=== PATIENT | male | born 1985 | race Caucasian/White ===

== ENCOUNTER 2018-08-07 07:04 | Outpatient (CLI) | payer OTHER, SELFPAY ==
[2018-08-07 08:14] LABS: Hemoglobin A1C 5.6 % (4.5-6.2)
[2018-08-07 09:05] LABS: ALT 83 U/L (12-78); AST 40 U/L (15-37); Albumin 3.9 g/dL (3.4-5.0); Alkaline Phosphatase 75 U/L (46-116); Anion Gap 10.6 mmol/L (3-11); BUN 12 mg/dL (7-18); Bilirubin, Total 1.2 mg/dL (0.2-1.0); CO2 25.4 mmol/L (21.0-32.0); CREATININE 0.83 mg/dL (0.70-1.30); Calcium 9.1 mg/dL (8.5-10.1); Chloride 103 mmol/L (98-107); Cholesterol 174 mg/dL (50-200); Glucose 118 mg/dL (70-100); HDL Cholesterol 39 mg/dL (40-60); LDL CHOLESTEROL 112 mg/dL (<100); Potassium 4.1 mmol/L (3.5-5.1); Sodium 139 mmol/L (136-145); Total Protein 6.9 g/dL (6.4-8.2); Triglyceride 131 mg/dL (30-150)
== END 2018-08-07 07:24 ==
PROVIDERS: PCP Family Medicine; Visit Provider Family Medicine
DX: R73.03 Prediabetes (principal); K76.0 Fatty (change of) liver, not elsewhere classified
CPT/HCPCS: 36415; 80053; 80061; 83721; 83036

== ENCOUNTER 2018-11-13 06:56 | Outpatient (CLI) | payer OTHER, SELFPAY ==
[2018-11-13 08:13] LABS: HCT 48.2 % (40.0-50.0); HGB 17.4 g/dL (13.5-17.5); Mean Corp. HGB Concentration 36.1 g/dL (32.0-36.0); Mean Corpuscular Hemoglobin 30.2 pg (27.0-33.0); Mean Corpuscular Volume 83.7 fL (80-95); Mean Platelet Volume 12.5 fL (8.0-11.0); Platelet Count 158 x1000/uL (130-400); RBC 5.76 m/cumm (4.50-6.00); RBC Distribution Width 12.6 % (11.8-14.1); White Blood Cell Count 5.19 k/cumm (4.4-10.8)
[2018-11-13 09:03] LABS: Iron 89 ug/dL (50-175); Total Iron Binding Capacity 238 ug/dL (250-450); Transferrin Sat 37 % (20-55)
[2018-11-13 09:17] LABS: ALT 120 U/L (12-78); AST 44 U/L (15-37); Albumin 4.1 g/dL (3.4-5.0); Alkaline Phosphatase 68 U/L (46-116); Anion Gap 9.5 mmol/L (3-11); BUN 17 mg/dL (7-18); Bilirubin, Total 0.7 mg/dL (0.2-1.0); CO2 25.5 mmol/L (21.0-32.0); CREATININE 0.89 mg/dL (0.70-1.30); Calcium 9.2 mg/dL (8.5-10.1); Chloride 105 mmol/L (98-107); Ferritin 538 ng/mL (8-388); Glucose 118 mg/dL (70-100); Sodium 140 mmol/L (136-145); Total Protein 7.2 g/dL (6.4-8.2)
[2018-11-14 09:42] LABS: Transferrin 181 mg/dL (201-352)
== END 2018-11-13 07:16 ==
PROVIDERS: PCP Family Medicine; Visit Provider Family Medicine
DX: R73.03 Prediabetes (principal); R79.89 Other specified abnormal findings of blood chemistry; K76.0 Fatty (change of) liver, not elsewhere classified
CPT/HCPCS: 36415; 80053; 85027; 82728; 83540; 83550; 84466

== ENCOUNTER 2020-06-12 08:25 | Outpatient (CLI) | payer OTHER, SELFPAY ==
[2020-06-15 08:17] LABS: SARS-CoV-2 RNA Undetected (Undetected); SARS-CoV-2 Specimen Source Nasopharynx
== END 2020-06-12 08:45 ==
PROVIDERS: PCP Family Medicine; Visit Provider Nurse Practitioner Family
DX: R05 Cough (principal)
CPT/HCPCS: U0003

== ENCOUNTER 2020-07-23 08:40 | Emergency (ER) | payer OTHER, SELFPAY ==
[2020-07-23 08:43] VITALS: BP 163/91; PULSE 85; RESP 16; TEMP 36.6; O2SAT 94
--- NOTE | 2020-07-23 08:44 | ED.GENADUL_ITS ---
Discharge Plan Disposition Patient Disposition: HOME Condition: Improving Discharge Details Clinical Impression: Laceration of hand, left Primary Care Provider: Alondra Vargas ED Provider: Marc Rivero Home Meds and New Rx's Prescriptions: Continued omeprazole 20 mg capsule,delayed release(DR/EC) 20 mg PO DAILY Qty: 90 RF: 3 Aspirin/Acetaminophen/Caffeine [Excedrin Extra Strength Caplet] 1 EACH tablet 2 ea PO PRN PRNRF: 0 No Action valacyclovir 1 gram tablet 2,000 mg PO Q12H PRN (Reason: herpes labialis) Qty: 20 RF: 3 Discharge Instructions Instructions: Laceration (ED) Additional Instructions: He had 4 sutures placed. Sutures removed in 8 to 9 days time. It is included free to return to ER for suture removal. May use splint if needed for protection while at work. Leave current Band-Aid in place for 36 hours, then gently wash with soap and water, pat dry and replace Band-Aid. Return if develop cold/blue/numbness of the fingertips, redness, foul-smelling discharge or a fever. May apply ice to reduce discomfort. Tylenol if needed. Medical Decision Making 34-year-old healthy male whose last tetanus shot was in 2019. He presents for laceration to the distal ulnar aspect of the fifth digit. He has normal two- point discrimination and normal vascular and motor exam. Wound liberally irrigated, anesthetized, examined in a bloodless field without evidence of deep tissue involvement nor a foreign body. Repaired with 4 interrupted nylon sutures. Patient given a splint for protection of the digit. He will leave the dressing on for 36 hours, then begin daily dressing changes. Return or see PMD for suture removal in 7 to 10 days time. HPI General Mode of arrival: ambulatory . Date/Time Provider Initiated Documentation: 07/23/20 08:41 . Limitations to Documentation: no limitations . Information obtained by: patient . History of Present Illness 34 year old M presents to the emergency department with the chief complaint of Laceration, described as mild, Quality is described as dull, and is localized to the left and upper extremity. Patient started experiencing this minute(s) and it has been constant. No relieving factors improve symptom(s), No exacerbating factors reported . Patient notes no other symptoms.. Patient did receive the following treatments prior to arrival, other (Bandage) Related Data Home Medications Medication Instructions Recorded Confirmed Aspirin/Acetaminophen/Caffeine 2 ea PO PRN PRN 09/22/17 07/23/20 [Excedrin Extra Strength Caplet] valacyclovir 1 gram tablet 2,000 mg PO Q12H PRN #20 tab 04/17/19 07/23/20 omeprazole 20 mg capsule,delayed 20 mg PO DAILY #90 tab-cap 04/10/20 07/23/20 release Previous Rx's Medication Instructions Recorded valacyclovir 1 gram tablet 2,000 mg PO Q12H PRN #20 tab 04/17/19 omeprazole 20 mg capsule,delayed 20 mg PO DAILY #90 tab-cap 04/10/20 release Allergies Allergy/AdvReac Type Severity Reaction Status Date / Time No Known Allergies Allergy Unverified 07/23/20 08:48 Review of Systems Narrative: Otherwise well. Last tetanus 2018 [facility] Family History Mother Diabetes Essential hypertension Father No problems noted. Brother No problems noted. Grandfather No problems noted. Grandfather No problems noted. Grandmother Diabetes Heart disease Stroke Grandmother No problems noted. Social History Smoking/Tobacco Use Status: Current every day Tobacco Type: smokeless tobacco Drug use: Never Substance use type: does not use Do you feel safe in your relationship?: Yes Exam Narrative Exam Narrative: GEN: awake, alert, oriented 3. Pleasant, well groomed, interactive. HEAD: Normocephalic, atraumatic CHEST/RESP: No respiratory distress Upper extremity: 2+ radial pulse bilaterally. Sensation intact throughout. The left hand has a 1.5 cm laceration on the distal ulnar aspect of the fifth digit. The volar pad is unaffected. Two-point discrimination is intact at 1 cm. Normal capillary refill. Normal range of motion. Neuro: Grossly normal neurologic exam, conversant, interactive. Psych: Speech fluent, thoughts congruent, affect normal Procedures Laceration Laceration 1: Site: hand Side (If applicable): left Size (cm): 1.5 Description: irregular Local Anesthetic: Lidocaine 1% Amount of anesthesia used (mL): 0.5 Pre-repair: wound explored and irrigated extensively Skin layer closed with: nylon Size (cm): 4-0 Number of sutures: 4 Technique: simple, interrupted
== END 2020-07-23 09:16 | disposition home or self-care (01) ==
PROVIDERS: Emergency Provider Emergency Medicine; PCP Family Medicine
DX: S61.217A Laceration without foreign body of left little finger without damage to nail, initial encounter (principal); W26.8XXA Contact with other sharp object(s), not elsewhere classified, initial encounter; Y99.0 Civilian activity done for income or pay
CPT/HCPCS: 12001

== ENCOUNTER 2021-01-13 08:15 | Outpatient (CLI) | payer OTHER, SELFPAY ==
--- NOTE | 2021-01-13 08:00 | DI.RAD_ITS ---
EXAM: XR SHOULDER RT COMPLETE 2+V CLINICAL HISTORY: right shoulder pain. TECHNIQUE: 2D digital imaging was performed. COMPARISON: No exams were available for comparison FINDINGS: No evidence of fracture or dislocation. No abnormal soft tissue calcifications. Benign bone island is noted in the osseous glenoid. Subacromial space is not diminished. No ominous osseous lesions. IMPRESSION: DATA REPOSITORY: RADIATION DOSE DELIVERED:
== END 2021-01-13 08:16 | disposition home or self-care (01) ==
LOC: DIORS 08:15
PROVIDERS: PCP Family Medicine; Referring Provider Family Medicine; Visit Provider Student in an Organized Health Care Education/Training Program
DX: M25.511 Pain in right shoulder (principal); S46.911A Strain of unspecified muscle, fascia and tendon at shoulder and upper arm level, right arm, initial encounter
CPT/HCPCS: 73030

== ENCOUNTER 2021-03-30 01:44 | Outpatient (CLI) | payer OTHER, SELFPAY ==
[2021-03-30 11:48] LABS: Source Nasal/Nares
[2021-03-30 17:47] LABS: COVID-19 PCR Negative (Negative)
== END 2021-03-30 01:45 | disposition home or self-care (01) ==
PROVIDERS: PCP Family Medicine; Visit Provider Student in an Organized Health Care Education/Training Program
DX: Z20.822 Contact with and (suspected) exposure to COVID-19 (principal); Z01.818 Encounter for other preprocedural examination
CPT/HCPCS: 87635

== ENCOUNTER 2021-04-01 06:06 | Day surgery (SDC) | payer OTHER, SELFPAY ==
[2021-04-01] VITALS (9 sets, daily range): BP systolic 111–135; BP diastolic 52–87; PULSE 62–74; RESP 16–26; TEMP 36–36.6; O2SAT 92–98; BMI 38.7
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
[2021-04-01] MEDS: Lactated Ringers 1,000 ML 100 ML IV (06:42)
--- NOTE | 2021-04-01 07:08 | PDOC.DSDIS_ITS ---
Discharge Plan Disposition Patient Disposition: HOME Condition: Stable Discharge Details Reason For Visit: Right shoulder surgery Attending Provider: Avery Trevizo Primary Care Provider: Alondra Vargas Home Meds and New Rx's Prescriptions: New aspirin 81 mg tablet,delayed release (DR/EC) 81 mg PO DAILY 14 Days Qty: 14 RF: 0 naproxen 250 mg tablet 250 - 500 mg PO BID PRN (Reason: Moderate pain or swelling) Qty: 60 RF: 0 oxycodone 5 mg tablet 5 - 10 mg PO Q4H PRN (Reason: moderate to severe pain) Qty: 22 RF: 0 Continued omeprazole 20 mg capsule,delayed release(DR/EC) 20 mg PO DAILY Qty: 90 RF: 3 valacyclovir 1 gram tablet 2,000 mg PO Q12H PRN (Reason: herpes labialis) Qty: 20 RF: 3 Aspirin/Acetaminophen/Caffeine [Excedrin Extra Strength Caplet] 1 EACH tablet 2 ea PO PRN PRNRF: 0 Discontinued ibuprofen 800 mg tablet 800 mg PO TID PRN (Reason: shoulder pain) Qty: 90 RF: 0 Discharge Instructions Additional Instructions: Surgery: Shoulder arthroscopy with biceps tenodesis, extensive debridement, and subacromial decompression. Activity: You should gradually increase range of motion motion and use of your shoulder. Please perform daily stretching exercises. You may use your shoulder for all regular activities. Avoid heavy lifting, reaching overhead, and lifting away from body for approximately 6 to 8 weeks. You may use the sling whenever you are out of the house for a few weeks. Adjust or remove the abduction pillow based on comfort. At home it is best to remove the sling and rest the arm on a pillow at your side or support the operative side with your other hand. A physical therapy prescription will be sent electronically to start in about 2 weeks. Prescriptions: Aspirin 81 mg take 1 daily to prevent a blood clot for 2 weeks Naproxen 250 mg take 1-2 every 12 hours with a meal as needed for moderate pain Oxycodone 5 mg take 1-2 every 4-6 hours as needed for severe pain You may use [id number] Tylenol (acetaminophen) as needed for mild pain. These pain medications may be taken all at once or in different combinations as needed. Also, recommend Colace (docusate) as a stool softener as surgery and pain medicine cause constipation. Dressings: Remove shoulder bandage after 3 days. Leave the sticky Steri-Strips in place until they fall off or remove them after you shower. Cover the incisions with Band-Aids or leave them open to air. You may shower after 5 days. Follow-up: 10-[address] Trevizo (1:00 PM on 04/14/21) You may take off the leg compression stockings this evening at home. You may also leave them on a few days longer if you have a history of leg swelling or edema. Let us know right away if you develop any redness, drainage, fevers, chest pain, or trouble breathing. Do not drink alcohol or drive for at least 24 hours after anesthesia. Please call the office during business hours with any questions or concerns. Referrals: Avery Trevizo MD [ [facility] STAFF PHYSICIAN] - Discharge Orders Discharge Orders: Discharge Order (Routine); Ordered 04/01/21 Ordered By: Avery Trevizo DS: Diagnosis Discharge Diagnosis (1) SLAP lesion of right shoulder: Status: Acute (2) Tendinitis of long head of biceps brachii of right shoulder: Status: Acute (3) Labral tear of shoulder: Status: Acute (4) Bursitis of right shoulder: Status: Acute (5) Impingement syndrome of right shoulder: Status: Acute
[2021-04-01] MEDS: ceFAZolin 3,000 MG in Normal Saline 100 ML 200 MG IVPB (07:34)
--- NOTE | 2021-04-01 08:21 | W.ANESNERVE ---
Nerve Block Single Injection Procedure Date and Time Date Performed: 04/01/21 Procedure Start: 07:18 Location Where Procedure Performed Procedure Location: PACU Reason Performed: Postoperative Analgesia Requesting Provider: Avery Trevizo Timeout Performed Timeout Performed: Yes Monitoring Used ECG, Blood Pressure and SpO2 Sterility Sterility: Hand Hygiene, Surgical Cap, Surgical Mask, Sterile Gloves and Chlorhexidine Sedation Given During Procedure Sedation Given (Indicate Dose Given): Versed IV Dose:: 2 mg Patient Mental Status Patient Mental Status: Awake Nerve Block 1st Nerve Block: Laterality: Right Block Type: Interscalene Needle / Catheter Used: 100mm SonoPlex II Local Anesthetic Bolus (Indicate Dose Given): Lidocaine used for local infiltration of skin, Injected in 3-5ml increments after negative blood aspiration, Bupivacaine 0.5% Dose:: 10 cc and Exparel Dose:: 10 cc Additives (Indicate Dose Given): None Ultrasound: Sterile probe cover and gel used Ultrasound Image Saved?: Yes Nerve Stimulator: Not Used Paresthesia: None Procedure Tolerated: No Complications and Patient tolerated well Procedure Outcome: Successful Performed By: Sarahi Cadet Supervised By: Benjamin Schroeder
[2021-04-01] MEDS: EPINEPHrine 30 MG/30 ML VIAL (09:12)
--- NOTE | 2021-04-01 10:14 | ROE_ITS ---
Date of service: 04/01/21 Time of Service: 08:00 Operative Note Operative Note DATE OF PROCEDURE: 04/01/21 PRE-OP DIAGNOSIS: Right: 1. SLAP tear 2. LHB tendinopathy 3. Posterior labral tear 4. Bursitis 5. Impingement POST-OP DIAGNOSIS: same PROCEDURE: Righ: 1. Arthroscopic biceps tenodesis, CPT# 34612. This involved arthroscopically suturing and reattaching the long head of the biceps tendon to the proximal humerus at the superior margin of the bicipital groove with a screw at the correct tension. 2. Extensive debridement, CPT# 34118. This involved using arthroscopic hand instruments, power instruments, and radiofrequency instruments to release to release the long head of the biceps tendon and a detached unstable frayed MGHL cordlike anterior labral complex, debride the SLAP tear, debride areas of anterior and posterior labral tearing and synovitis, and chondromalacia about the biceps groove within the glenohumeral joint anteriorly, superiorly and posteriorly. 3. Subacromial decompression, CPT# 83115. This involved using arthroscopic power instruments and a radiofrequency wand to complete a bursectomy. The warehouse administrative assistant was medically required in order to help assist in techniques above, which require positioning the arm, holding the arthroscope, and manipulating multiple instruments and sutures at the same time. This cannot be done without the help of an experienced warehouse administrative assistant. SURGEON: Avery Trevizo [employer] BACK FEEDER: Malini Richards ANESTHESIA TYPE: General LMA/ETT and Primary Nerve Block Refer to Anesthesia Record ESTIMATED BLOOD LOSS: 5 PATHOLOGY: none sent COMPLICATIONS: Other (Initial shaver device created metal debris in the glenohumeral joint, the shaver device was changed, and all metal debris easily remove with the subsequent shaver as well as copious arthroscopic pump irrigation debridement.) Patient was transported to: PACU Patient's condition: stable Implants: Arthrex: 4.75mm SwiveLocks x 1 Indications: The patient was diagnosed with the above conditions and appropriately indicated for surgical intervention. Please see complete medical record for details. Findings: Exam under anesthesia: Full, symmetrical range of motion. No instability appreciated, but likely posterior labral click with stress testing. Glenohumeral joint: Significant anterior, superior, and posterior synovitis with anterior detached MGHL cordlike anterior labral complex and fraying of separate anterior and anterior-inferior labrum. Type II SLAP tear and thickening about the biceps anchor. No significant biceps or bicipital groove injection. Moderate posterior labral fraying diminutive tissue. Intact subscapularis. Intact articular side rotator cuff. Largely intact articular cartilage except about central anterior glenoid mild thinning as well as about the superior bicipital groove. Subacromial space: Significant bursitis. Minimal undersurface acromial bone spur. Intact bursal rotator cuff. Procedure Description: In the operating room, general anesthesia was induced. Bilateral shoulders were examined. The patient was positioned in the beachchair position. All bony prominences were well-padded. Preoperative antibiotics were administered. The shoulder was prepped and draped in the usual sterile fashion. The correct patient, procedure, and side of the procedure were all verified prior to incision. Starting through the posterior portal a standard complete diagnostic arthroscopy was performed of the glenohumeral joint including inspection of the long head of the biceps, anterior and superior labrum, subscapularis tendon, supraspinatus and infraspinatus tendons, and axillary recess. The glenoid and humeral head cartilage as well as the posterior labrum were inspected from an anterior viewing portal. Significant findings and interventions noted above as part of the extensive debridement. A rigid cannula was inserted anteriorly. An all-arthroscopic suprapectoral biceps tenodesis was performed through an anterior portal using a Loop N Tack method with a SutureTape FiberLink cinched around and through the tendon. The superior aspect of the bicipital groove was prepped with hand and power instruments to optimize healing. The biceps was tenotomized from the labrum and fixated with a suture anchor at the superior margin of the bicipital groove using a swivel lock anchor at the appropriate tension. Secure fixation in proper position at the superior aspect of the groove was demonstrated with full elbow extension and anterior arm compression. Starting through the posterior portal, the arthroscope was directed into the subacromial space. A lateral 50 yard line lateral portal was omitted. A combination of power instruments and a radiofrequency ablator as well as arm rotation were used to debride bursitis anteriorly, posteriorly, and laterally as well as expose the undersurface of the acromion. The coracoacromial ligament was preserved. The bursectomy was completed viewing posteriorly and working from anteriorly and the rotator cuff was inspected and intact. The shoulder was drained of arthroscopic fluid. Both portal sites were copiously irrigated. These incisions were closed using 3-0 Monocryl in a buried fashion, covered with Mastisol, Steri-Strips, Xeroform, dry gauze, and ABDs. The dressings were covered and secured with Medipore tape. The operative extremity was placed into a sling for immobilization. The patient awoke from anesthesia without complication and was transferred to the recovery room in a stable condition.
--- NOTE | 2021-04-01 11:06 | W.ANESPOSTOP ---
Postoperative Evaluation Date, Time and Location Date Performed: 04/01/21 Time Performed: 11:07 Patient Location: PACU Vital Signs Most Recent Imported Vital Signs: Most Recent Vital Signs Temp Pulse Resp BP Pulse Ox 36.6 C 71 26 H 115/52 L 94 04/01/21 10:59 04/01/21 10:59 04/01/21 10:59 04/01/21 10:59 04/01/21 10:59 Pain Score Most Recent Pain Score: Most Recent Pain Score Pain Level 0 04/01/21 10:59 Assessment Mental Status: Awake (Alert & Oriented to Patient Baseline) Airway and Respiratory Function: Patent airway with normal (patient baseline) respiratory exam Cardiovascular Function: Hemodynamically Stable Hydration Status: Adequately Hydrated Nausea & Vomiting: No Nausea or Vomiting Pain: Pt. Denies Any Pain Peripheral Nerve Block: Regional nerve block not resolved at time of post operative discharge (Patient denying pain radial distribution with heavier block than ulnar. Patient is happy with his block. ) Teaching Patient Teaching: Discussed Safe Use of Pain Medication Given Recent Anesthesia
== END 2021-04-01 12:59 | disposition home or self-care (01) ==
PROVIDERS: PCP Family Medicine; Visit Provider Student in an Organized Health Care Education/Training Program
PROC: (CPT 29805; principal; 2021-04-01 07:30)
PROC: (CPT 23430; 2021-04-01 07:30)
DX: S43.431A Superior glenoid labrum lesion of right shoulder, initial encounter (principal); M75.21 Bicipital tendinitis, right shoulder; M75.51 Bursitis of right shoulder; M75.41 Impingement syndrome of right shoulder; X58.XXXA Exposure to other specified factors, initial encounter; G89.18 Other acute postprocedural pain; M96.89 Other intraoperative and postprocedural complications and disorders of the musculoskeletal system; Y82.8 Other medical devices associated with adverse incidents; Y92.234 Operating room of hospital as the place of occurrence of the external cause
CPT/HCPCS: 29828; 29823; 29826; 76942; J0131; J0690; J1100; J1200; J1885; J2001; J2250; J2370; J2405; J2704

== ENCOUNTER 2021-06-02 02:19 | Outpatient (CLI) | payer OTHER, SELFPAY ==
[2021-06-02 09:56] LABS: HCT 46.5 % (40.0-50.0); HGB 16.2 g/dL (13.5-17.5); MCH 29.8 pg (27.0-33.0); MCHC 34.8 % (32.0-36.0); MCV 85.6 fL (80-95); MPV 12.3 fL (8.0-11.0); Platelet Count 157 10^3/uL (130-400); RBC 5.43 10^6/uL (4.36-5.78); RDW 11.9 % (11.8-14.1); RDW-SD 37.1 fL; WBC 5.93 10^3/uL (4.4-10.8)
[2021-06-02 10:12] LABS: ALT 191 U/L (16-63); AST 73 U/L (15-37); Albumin 4.4 g/dL (3.4-5.0); Alkaline Phosphatase 67 U/L (46-116); Anion Gap 11.3 mmol/L (3-11); BUN 18 mg/dL (7-18); Bilirubin, Total 0.7 mg/dL (0.2-1.0); CO2 25.7 mmol/L (21.0-32.0); CREATININE 0.9 mg/dL (0.70-1.30); Calcium 9.5 mg/dL (8.5-10.1); Calculated LDL 138 mg/dL (<100); Chloride 103 mmol/L (98-107); Cholesterol 221 mg/dL (<200); Glucose 158 mg/dL (74-106); HDL Cholesterol 42 mg/dL (40-60); Potassium 4.1 mmol/L (3.5-5.1); Sodium 140 mmol/L (136-145); Total Protein 7.4 g/dL (6.4-8.2); Triglyceride 209 mg/dL (<150)
== END 2021-06-02 02:20 | disposition home or self-care (01) ==
LOC: LOS 02:20
PROVIDERS: PCP Family Medicine; Visit Provider Family Medicine
DX: K76.0 Fatty (change of) liver, not elsewhere classified (principal); R73.9 Hyperglycemia, unspecified; R79.89 Other specified abnormal findings of blood chemistry
CPT/HCPCS: 36415; 80053; 80061; 85027

== ENCOUNTER 2021-08-04 03:36 | Outpatient (CLI) | payer OTHER, SELFPAY ==
[2021-08-04 08:39] LABS: ALT 156 U/L (16-63); AST 71 U/L (15-37); Albumin 4.4 g/dL (3.4-5.0); Alkaline Phosphatase 70 U/L (46-116); Anion Gap 9.2 mmol/L (3-11); BUN 14 mg/dL (7-18); Bilirubin, Total 0.7 mg/dL (0.2-1.0); CO2 27.8 mmol/L (21.0-32.0); CREATININE 0.9 mg/dL (0.70-1.30); Calcium 9.3 mg/dL (8.5-10.1); Chloride 103 mmol/L (98-107); Glucose 167 mg/dL (74-106); Magnesium 1.8 mg/dL (1.8-2.4); Potassium 4.2 mmol/L (3.5-5.1); Sodium 140 mmol/L (136-145); Total Protein 7.4 g/dL (6.4-8.2)
[2021-08-04 08:46] LABS: Hemoglobin A1C 6.8 % (<5.7)
== END 2021-08-04 03:37 | disposition home or self-care (01) ==
LOC: LBO 03:36
PROVIDERS: PCP Family Medicine; Visit Provider Family Medicine
DX: K76.0 Fatty (change of) liver, not elsewhere classified (principal); E83.42 Hypomagnesemia; R73.9 Hyperglycemia, unspecified
CPT/HCPCS: 36415; 80053; 83036; 83735

== ENCOUNTER 2021-10-22 07:43 | Outpatient (CLI) | payer OTHER, SELFPAY ==
[2021-10-22 22:26] LABS: COVID-19 RT-PCR UVMMC Result Negative (Negative)
== END 2021-10-22 07:44 | disposition home or self-care (01) ==
PROVIDERS: PCP Family Medicine; Visit Provider Nurse Practitioner Family
DX: Z20.822 Contact with and (suspected) exposure to COVID-19 (principal)
CPT/HCPCS: U0003

== ENCOUNTER 2021-12-13 12:45 | Outpatient (CLI) | payer OTHER, SELFPAY ==
--- NOTE | 2021-12-13 13:21 | DI.RAD_ITS ---
Exam(s) XR PELVIS AP EXAM: XR PELVIS AP CLINICAL HISTORY: slip and fall on ice landing on bum, R10.2 pelvic pain. TECHNIQUE: 2D digital imaging was performed. COMPARISON: No exams were available for comparison FINDINGS: BONES: No acute fracture is present. No bony destructive lesion is seen. JOINTS: No dislocation present. No joint space narrowing is present. SOFT TISSUE: Normal. IMPRESSION: Unremarkable radiographs of the pelvis. DATA REPOSITORY: RADIATION DOSE DELIVERED:
--- NOTE | 2021-12-13 13:21 | DI.RAD_ITS ---
Exam(s) XR THORACIC SPINE COMPLETE EXAM: XR THORACIC SPINE COMPLETE CLINICAL HISTORY: slip and fall on ice, thoracic back pain, M54.6. TECHNIQUE: 2D digital imaging was performed. COMPARISON: No exams were available for comparison FINDINGS: BONES: There is no fracture or destructive lesion. The vertebral bodies and posterior elements are un remarkable. DISKS:Alignment is within normal limits. Interverebral disc spaces are maintained. SOFT TISSUE: Visualized lungs are clear. IMPRESSION: Unremarkable radiographs of the thoracic spine. DATA REPOSITORY: RADIATION DOSE DELIVERED:
--- NOTE | 2021-12-13 13:21 | DI.RAD_ITS ---
Exam(s) XR LUMBAR SPINE COMPLETE EXAM: XR LUMBAR SPINE COMPLETE CLINICAL HISTORY: low back pain M54.50. TECHNIQUE: 2D digital imaging was performed. COMPARISON: CT ABD PELVIS WITH CONTRAST from 09/22/2017 FINDINGS: BONES: No fracture or destructive lesion. Vertebral bodies are unremarkable. No facet hypertrophy heath ntified. DISKS: Intervertebral disc spaces are maintained. ALIGNMENT: Lumbar spinal alignment is within normal limits. SOFT TISSUE: Normal. IMPRESSION: Unremarkable radiographs of the lumbar spine. DATA REPOSITORY: RADIATION DOSE DELIVERED:
== END 2021-12-13 13:05 ==
PROVIDERS: PCP Family Medicine; Visit Provider Physician Assistant Medical
DX: M54.6 Pain in thoracic spine (principal); R10.2 Pelvic and perineal pain; M54.59 Other low back pain; W00.0XXA Fall on same level due to ice and snow, initial encounter
CPT/HCPCS: 72072; 72110; 72170

== ENCOUNTER 2021-12-13 14:39 | Outpatient (REF) | payer OTHER, SELFPAY ==
[2021-12-15 12:01] LABS: COVID-19 RT-PCR UVMMC Result Negative (Negative)
== END 2021-12-13 14:40 | disposition home or self-care (01) ==
LOC: LBN 14:39
PROVIDERS: PCP Family Medicine; Visit Provider Physician Assistant Medical
DX: J32.9 Chronic sinusitis, unspecified (principal); Z20.822 Contact with and (suspected) exposure to COVID-19
CPT/HCPCS: U0003

== ENCOUNTER 2022-04-01 15:09 | Outpatient (REF) | payer OTHER, SELFPAY ==
[2022-04-02 14:14] LABS: COVID-19 RT-PCR UVMMC Result Negative (Negative)
== END 2022-04-01 15:10 | disposition home or self-care (01) ==
LOC: LBN 15:09
PROVIDERS: PCP Nurse Practitioner Family; Visit Provider Physician Assistant
DX: Z20.822 Contact with and (suspected) exposure to COVID-19 (principal); R68.89 Other general symptoms and signs
CPT/HCPCS: U0003

== ENCOUNTER 2022-04-05 12:41 | Emergency (ER) | payer OTHER, SELFPAY ==
[2022-04-05 12:50] VITALS: BP 146/76; PULSE 99; RESP 18; TEMP 36.8; O2SAT 97
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
[2022-04-05] MEDS: Normal Saline 1,000 ML 1000 ML IV (13:29)
[2022-04-05 13:30] VITALS: RESP 18
[2022-04-05 13:34] LABS: Abs Immature Grans 0.04 10^3/uL (0.0-0.06); Absolute Basophil Count 0.03 10^3/uL (0.0-0.2); Absolute Lymphocyte Count 0.85 10^3/uL (1.2-3.4); Absolute Monocyte Count 0.59 10^3/uL (0.1-0.8); Basophils % 0.3; Eosinophils % 1.1; HCT 41.8 % (40.0-50.0); HGB 14.3 g/dL (13.5-17.5); Immature Grans % 0.4; Lymphocytes % 9.4; MCH 28.7 pg (27.0-33.0); MCHC 34.2 % (32.0-36.0); MCV 84 fL (80-95); MPV 10.1 fL (8.0-11.0); Monocytes % 6.5; Neutrophils % 82.3; Platelet Count 261 10^3/uL (130-400); RBC 4.99 10^6/uL (4.36-5.78); RDW 12.7 % (11.8-14.1); RDW-SD 38.6 fL; WBC 9.01 10^3/uL (4.4-10.8)
[2022-04-05 13:35] LABS: COVID-19 PCR Negative (Negative); Influenza A PCR Negative (Negative); Influenza B PCR Negative (Negative); RSV PCR Negative (Negative)
[2022-04-05 13:41] LABS: Bilirubin Negative (Negative); Blood Negative (Negative); Clarity Sl Cloudy (Clear); Glucose Negative (Negative); Ketones Negative (Negative); Leukocyte Esterase Negative (Negative); Nitrite Negative (Negative); Urobilinogen 0.2 EU/dL (Up TO 0.2)
[2022-04-05 13:53] LABS: ALT 26 U/L (16-63); AST 18 U/L (15-37); Albumin 3.3 g/dL (3.4-5.0); Alkaline Phosphatase 83 U/L (46-116); Anion Gap 10.1 mmol/L (3-11); BUN 21 mg/dL (7-18); Bilirubin, Total 0.4 mg/dL (0.2-1.0); CO2 25.9 mmol/L (21.0-32.0); CREATININE 0.9 mg/dL (0.70-1.30); Calcium 9.2 mg/dL (8.5-10.1); Chloride 99 mmol/L (98-107); Glucose 114 mg/dL (74-106); Lipase 60 U/L (73-393); Potassium 4.1 mmol/L (3.5-5.1); Sodium 135 mmol/L (136-145); Total Protein 7.4 g/dL (6.4-8.2)
[2022-04-05 14:39] VITALS: BP 123/65; PULSE 80; RESP 18; O2SAT 97
[2022-04-06 10:55] LABS: Lyme Ab w Rflx to Lyme Confirm Negative (Negative)
[2022-04-07 13:10] LABS: Anaplasma phagocytophilum Negative (Negative); B. miyamotoi PCR Negative (Negative); Babesia divergens/MO-1 Negative (Negative); Babesia duncani Negative (Negative); Babesia microti Negative (Negative); Ehrlichia chaffeensis Negative (Negative); Ehrlichia ewingii/canis Negative (Negative); Ehrlichia muris eauclairensis Negative (Negative)
== END 2022-04-05 14:50 | disposition home or self-care (01) ==
PROVIDERS: Emergency Provider Physician Assistant; PCP Nurse Practitioner Family
DX: L03.115 Cellulitis of right lower limb (principal); R53.83 Other fatigue; M79.18 Myalgia, other site; Z20.822 Contact with and (suspected) exposure to COVID-19
CPT/HCPCS: 36415; 80053; 83690; 87637; 87798; 96360; 99284; 81003; 85025; 86618

== ENCOUNTER 2022-04-20 02:47 | Outpatient (CLI) | payer OTHER, SELFPAY | END 2022-04-20 02:48 | disposition home or self-care (01) | LOC: LBO 02:47 | PROVIDERS: PCP Nurse Practitioner Family; Visit Provider Physician Assistant Medical ==

== ENCOUNTER 2022-04-25 11:12 | Outpatient (CLI) | payer OTHER, SELFPAY ==
[2022-04-25 16:56] LABS: Abs Immature Grans 0.07 10^3/uL (0.0-0.06); Absolute Basophil Count 0.02 10^3/uL (0.0-0.2); Absolute Neutrophil Count 10.57 10^3/uL (1.2-6.7); Basophils % 0.2; HCT 41.8 % (40.0-50.0); HGB 14.3 g/dL (13.5-17.5); Immature Grans % 0.6; MCH 28.3 pg (27.0-33.0); MCHC 34.2 % (32.0-36.0); MCV 83 fL (80-95); MPV 11.2 fL (8.0-11.0); Monocytes % 1.7; Neutrophils % 88.5; Platelet Count 276 10^3/uL (130-400); RBC 5.06 10^6/uL (4.36-5.78); RDW 13.2 % (11.8-14.1); RDW-SD 39.3 fL; WBC 11.94 10^3/uL (4.4-10.8)
[2022-04-25 16:58] LABS: Absolute Lymphocyte Count 1.07 10^3/uL (1.2-3.4)
[2022-04-25 17:11] LABS: Hemoglobin A1C 6.3 % (<5.7)
[2022-04-25 17:12] LABS: ALT 26 U/L (16-63); AST 12 U/L (15-37); Albumin 3.7 g/dL (3.4-5.0); Alkaline Phosphatase 73 U/L (46-116); Anion Gap 11.6 mmol/L (3-11); BUN 28 mg/dL (7-18); Bilirubin, Total 0.3 mg/dL (0.2-1.0); CO2 25.4 mmol/L (21.0-32.0); CREATININE 0.8 mg/dL (0.70-1.30); Calcium 9.2 mg/dL (8.5-10.1); Chloride 101 mmol/L (98-107); Glucose 227 mg/dL (74-106); Sodium 138 mmol/L (136-145); Total Protein 7.7 g/dL (6.4-8.2)
[2022-04-25 18:24] LABS: ALT 30 U/L (16-63); AST 12 U/L (15-37); Albumin 3.7 g/dL (3.4-5.0); Alkaline Phosphatase 77 U/L (46-116); Bilirubin, Direct 0.1 mg/dL (0.0-0.2); Bilirubin, Total 0.3 mg/dL (0.2-1.0); Total Protein 7.3 g/dL (6.4-8.2)
[2022-04-26 19:27] LABS: Rheumatoid Factor 10.7 IU/mL (<12.0)
[2022-04-26 19:33] LABS: CRP, High Sensitivity >15.00 mg/L (See Note)
[2022-04-27 11:41] LABS: Lyme Ab w Rflx to Lyme Confirm Negative (Negative)
[2022-04-27 15:26] LABS: ANA Interpretation Negative (Negative)
[2022-04-28 14:34] LABS: dsDNA Ab, IgG <12.3 IU/mL (<30.0)
[2022-04-29 10:10] LABS: Anaplasma phagocytophilum Negative (Negative); B. miyamotoi PCR Negative (Negative); Babesia divergens/MO-1 Negative (Negative); Babesia duncani Negative (Negative); Babesia microti Negative (Negative); Ehrlichia chaffeensis Negative (Negative); Ehrlichia ewingii/canis Negative (Negative); Ehrlichia muris eauclairensis Negative (Negative)
== END 2022-04-25 11:13 | disposition home or self-care (01) ==
LOC: LBO 11:12
PROVIDERS: Physician Assistant Medical; PCP Nurse Practitioner Family; Visit Provider Physician Assistant Medical
DX: R53.83 Other fatigue (principal); M25.59 Pain in other specified joint; M79.18 Myalgia, other site; R21 Rash and other nonspecific skin eruption; E11.9 Type 2 diabetes mellitus without complications
CPT/HCPCS: 36415; 80053; 80076; 86141; 87798; 83036; 85025; 86038; 86225; 86431; 86618

== ENCOUNTER → 2022-08-03 01:40 | Outpatient (CLI) | payer OTHER, SELFPAY ==
--- NOTE | 2022-08-03 16:00 | DI.RAD_ITS ---
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 TECHNIQUE: 2D digital imaging was performed. COMPARISON: No exams were available for comparison FINDINGS: 2 views: Heart size is normal. The mediastinum is not widened. Lungs are clear. No infiltrates nor pleural effusions. IMPRESSION: No acute pulmonary findings. DATA REPOSITORY: RADIATION DOSE DELIVERED:
--- NOTE | 2022-08-03 16:00 | DI.RAD_ITS ---
Exam(s) XR FOOT RT COMPLETE EXAM: XR FOOT RT COMPLETE CLINICAL HISTORY: POLYARTHRITIS, M25.50, FOOT PAIN AND STIFFNESS, ? INFLAMMATORY ARTHRITIS. TECHNIQUE: 2D digital imaging was performed. COMPARISON: CR XR FOOT LT COMPLETE from 08/03/2022 FINDINGS: 3 views There is no evidence of fracture or diastasis of the Lisfranc joint. Bone density is normal. No oss eous lesions nor erosions. No pes planus. IMPRESSION: No significant osseous findings. DATA REPOSITORY: RADIATION DOSE DELIVERED:
--- NOTE | 2022-08-03 16:00 | DI.RAD_ITS ---
Exam(s) XR FOOT LT COMPLETE EXAM: XR FOOT LT COMPLETE CLINICAL HISTORY: POLYARTHRITIS, M25.50, FOOT PAIN AND STIFFNESS, ? INFLAMMATORY ARTHRITIS. TECHNIQUE: 2D digital imaging was performed. COMPARISON: No exams were available for comparison FINDINGS: 3 views No evidence of fracture or diastasis of the Lisfranc joint. Bone density normal. No osseous lesions nor erosions. Mild narrowing of the great toe metatarsophalangeal joint noted. There is accessory ossicle on the medial aspect of the foot adjacent to the navicular tuberosity. This is probably a se samoid bone within the distal tibialis posterior tendon. No inferior calcaneal spur. IMPRESSION: As above. DATA REPOSITORY: RADIATION DOSE DELIVERED:
--- NOTE | 2022-08-03 16:00 | DI.RAD_ITS ---
Exam(s) XR ARTHRITIS SERIES EXAM: XR ARTHRITIS SERIES CLINICAL HISTORY: SEVERAL MOS OF HAND PAIN AND STIFFNESS, ? INFLAMMATORY ARTHRITIS. TECHNIQUE: 2D digital imaging was performed. COMPARISON: No exams were available for comparison FINDINGS: 3 views of both hands: No evidence of fracture or subluxation or abnormal soft tissue calcifications in either hand. Bone d ensity is normal. Are no osseous lesions nor erosions. Visualized bones of the wrist also appear unremarkable. Also no degenerative change at the 1st carpo metacarpal joint on either side. IMPRESSION: No significant radiograph findings in the hands. No osseous lesions. No erosions evident. DATA REPOSITORY: RADIATION DOSE DELIVERED:
== END ==
PROVIDERS: PCP Nurse Practitioner Family; Visit Provider Internal Medicine Rheumatology
DX: M25.59 Pain in other specified joint (principal)
CPT/HCPCS: 71046; 73120; 73630

== ENCOUNTER 2022-08-03 02:25 | Outpatient (CLI) | payer OTHER, SELFPAY ==
[2022-08-03 16:10] LABS: Abs Immature Grans 0.03 10^3/uL (0.0-0.06); Absolute Basophil Count 0.05 10^3/uL (0.0-0.2); Absolute Eosinophil Count 0.13 10^3/uL (0.0-0.7); Absolute Lymphocyte Count 1.93 10^3/uL (1.2-3.4); Absolute Monocyte Count 0.47 10^3/uL (0.1-0.8); Basophils % 0.7; Eosinophils % 1.8; HCT 43.5 % (40.0-50.0); HGB 14.6 g/dL (13.5-17.5); Immature Grans % 0.4; Lymphocytes % 26.8; MCH 27.4 pg (27.0-33.0); MCHC 33.6 % (32.0-36.0); MCV 82 fL (80-95); Monocytes % 6.5; Neutrophils % 63.8; Platelet Count 250 10^3/uL (130-400); RBC 5.32 10^6/uL (4.36-5.78); RDW 12.8 % (11.8-14.1); RDW-SD 37.5 fL; WBC 7.21 10^3/uL (4.4-10.8)
[2022-08-03 16:16] LABS: ESR 30 mm/hr (0-15)
[2022-08-03 16:29] LABS: Hemoglobin A1C 6.6 % (<5.7)
[2022-08-03 16:42] LABS: Bilirubin Negative (Negative); Blood Negative (Negative); Clarity Clear (Clear); Glucose Negative (Negative); Ketones Negative (Negative); Leukocyte Esterase Negative (Negative); Nitrite Negative (Negative); Specific Gravity 1.015 (1.005-1.025); Urobilinogen 0.2 EU/dL (Up TO 0.2)
[2022-08-03 16:50] LABS: Iron 49 ug/dL (65-175); Total Iron Binding Capacity 254 ug/dL (250-450); Transferrin Sat 19 % (20-55)
[2022-08-03 16:51] LABS: ALT 26 U/L (16-63); AST 9 U/L (15-37); Alkaline Phosphatase 88 U/L (46-116); BUN 16 mg/dL (7-18); Bilirubin, Direct 0.1 mg/dL (0.0-0.2); Bilirubin, Total 0.4 mg/dL (0.2-1.0); C-Reactive Protein 1.48 mg/dL (0.0-0.3); CREATININE 0.9 mg/dL (0.70-1.30); Calcium 9.5 mg/dL (8.5-10.1); Chloride 100 mmol/L (98-107); Estimated GFR 114.93 (mL/min/1.73m2); Glucose 120 mg/dL (74-106); Potassium 3.8 mmol/L (3.5-5.1); Sodium 137 mmol/L (136-145); Total Protein 8.2 g/dL (6.4-8.2)
[2022-08-03 17:02] LABS: COMMENT (LAB VIEW ONLY) 31.95 mg/dL; PROTEIN < 6.0 mg/dL
[2022-08-03 17:32] LABS: Ferritin 378 ng/mL (26-388)
[2022-08-05 09:17] LABS: HBs Antibody, Quant >1000.0 mIU/mL (See Note); Hepatitis B Surface Ab Positive (See Note)
[2022-08-05 09:20] LABS: Cyclic Citrullinated Peptide <2.5 U/mL (<5.0)
[2022-08-05 09:34] LABS: Hepatitis B Surface Ag Negative (Negative)
[2022-08-05 10:00] LABS: HIV-1/2 Ag & Ab Screen Negative (Negative)
[2022-08-05 10:08] LABS: Hepatitis C Ab w Rflx HCV PCR Negative (Negative)
[2022-08-05 10:18] LABS: Hep B Core Antibody Negative (Negative)
[2022-08-05 12:57] LABS: Myeloperoxidase Ab IgG <0.2 U; Proteinase 3 Ab (PR3) <0.2 U
[2022-08-05 13:52] LABS: TB Interpretation Negative (Negative); TB1 Ag minus Nil 0.04 IU/ml; TB2 Ag minus Nil 0.02 IU/mL
[2022-08-05 14:03] LABS: Angiotensin Converting Enzyme 62 U/L (16 - 85)
[2022-08-05 14:52] LABS: ANCA Interpretation Negative (Negative)
== END 2022-08-03 02:26 | disposition home or self-care (01) ==
LOC: LBO 02:26
PROVIDERS: PCP Nurse Practitioner Family; Visit Provider Physician Assistant Medical
DX: K75.81 Nonalcoholic steatohepatitis (NASH) (principal); E11.9 Type 2 diabetes mellitus without complications; M25.59 Pain in other specified joint
CPT/HCPCS: 36415; 80053; 80076; 82164; 85652; 86200; 86255; 86704; 86706; 86803; 87340; 87389; 81003; 82565; 82728; 83036; 83516; 83540; 83550; 84156; 85025; 86140; 86480

== ENCOUNTER → 2022-10-06 12:59 | Outpatient (CLI) | payer OTHER, SELFPAY ==
--- NOTE | 2022-10-06 15:10 | DI.MRI_ITS ---
Exam(s) MR UPPER JOINT RT WO EXAM: MR UPPER JOINT RT WO CLINICAL HISTORY: R SHOULDER PAIN, h/o surgery, tendonitis biceps brachili, m75.21. TECHNIQUE: Multiplanar multisequence MRI was performed. COMPARISON: Plain films 13 January 2021 and MRI from [facility] 27 January 2021 FINDINGS: BONES: There is no fracture or contusion pattern. Mild edema inferomedial posterior humeral head. JOINTS:The acromioclavicular joint is normal. The glenohumeral joint is normal. TENDONS: Supraspinatus: Unremarkable. Infraspinatus: Unremarkable. Subscapularis: Unremarkable. Teres Minor: Unremarkable. Biceps and [place]: Unremarkable. MUSCLES: Unremarkable. GLENOID LABRUM: No definite tear visible on this noncontrast examination. SOFT TISSUES: Full metallic artifacts related to previous surgery.. OTHER: Subacromial and subdeltoid bursae show no significant fluid.. IMPRESSION: Prior surgery. No evidence of tendon tear. No large labral defect. No joint effusion. DATA REPOSITORY:
== END ==
PROVIDERS: PCP Nurse Practitioner Family; Visit Provider Student in an Organized Health Care Education/Training Program
DX: M75.21 Bicipital tendinitis, right shoulder (principal)
CPT/HCPCS: 73221

== ENCOUNTER 2022-11-09 11:05 | Outpatient (CLI) | payer OTHER, SELFPAY ==
--- NOTE | 2022-11-09 08:15 | DI.RAD_ITS ---
Exam(s) XR SHOULDER RT COMPLETE 2+V EXAM: XR SHOULDER RT COMPLETE 2+V CLINICAL HISTORY: RIGHT SHOULDER F/U. TECHNIQUE: 2D digital imaging was performed. Three views. COMPARISON: MR MR UPPER JOINT RT WO from 10/06/2022 FINDINGS: BONES: No acute fracture is present. No bony destructive lesion is seen. JOINTS: No dislocation present. SOFT TISSUE: Normal. IMPRESSION: Unremarkable radiographs of the right shoulder. DATA REPOSITORY: RADIATION DOSE DELIVERED:
== END 2022-11-09 11:06 | disposition home or self-care (01) ==
LOC: DIORS 11:06
PROVIDERS: PCP Nurse Practitioner Family; Referring Provider Nurse Practitioner Family; Visit Provider Student in an Organized Health Care Education/Training Program
DX: M75.21 Bicipital tendinitis, right shoulder (principal); M25.511 Pain in right shoulder
CPT/HCPCS: 73030

== ENCOUNTER 2023-06-08 04:11 | Outpatient (CLI) | payer OTHER, SELFPAY ==
[2023-06-08 15:56] LABS: Abs Immature Grans 0.02 10^3/uL (0.0-0.06); Absolute Basophil Count 0.06 10^3/uL (0.0-0.2); Absolute Eosinophil Count 0.14 10^3/uL (0.0-0.7); Absolute Neutrophil Count 4.29 10^3/uL (1.2-6.7); Basophils % 0.9; Eosinophils % 2.1; HCT 45.4 % (40.0-50.0); Immature Grans % 0.3; Lymphocytes % 25.3; MCH 29.4 pg (27.0-33.0); MCHC 35.2 % (32.0-36.0); MCV 84 fL (80-95); MPV 11.1 fL (8.0-11.0); Monocytes % 7.5; Neutrophils % 63.9; Platelet Count 183 10^3/uL (130-400); RBC 5.44 10^6/uL (4.36-5.78); RDW 13.5 % (11.8-14.1); RDW-SD 39.6 fL; WBC 6.71 10^3/uL (4.4-10.8)
[2023-06-08 16:21] LABS: Hemoglobin A1C 6.3 % (<5.7)
[2023-06-08 16:54] LABS: ALT 68 U/L (16-63); AST 30 U/L (15-37); Albumin 4.3 g/dL (3.4-5.0); Alkaline Phosphatase 78 U/L (46-116); Anion Gap 9.5 mmol/L (3-11); BUN 19 mg/dL (7-18); Bilirubin, Total 0.7 mg/dL (0.2-1.0); CO2 26.5 mmol/L (21.0-32.0); Calcium 10.4 mg/dL (8.5-10.1); Chloride 100 mmol/L (98-107); Estimated GFR 100.66 (mL/min/1.73m2); Ferritin 307 ng/mL (26-388); Glucose 141 mg/dL (74-106); Potassium 3.9 mmol/L (3.5-5.1); Sodium 136 mmol/L (136-145); Total Protein 8.3 g/dL (6.4-8.2)
[2023-06-08 17:19] LABS: Iron 73 ug/dL (65-175); Total Iron Binding Capacity 246 ug/dL (250-450); Transferrin Sat 30 % (20-55)
== END 2023-06-08 04:12 | disposition home or self-care (01) ==
LOC: LBO 04:12
PROVIDERS: PCP Nurse Practitioner Family; Visit Provider Nurse Practitioner Family
DX: E11.9 Type 2 diabetes mellitus without complications (principal); R79.89 Other specified abnormal findings of blood chemistry; K76.0 Fatty (change of) liver, not elsewhere classified
CPT/HCPCS: 36415; 80053; 82728; 83036; 83540; 83550; 85025

== ENCOUNTER 2023-08-16 05:39 | Outpatient (CLI) | payer OTHER, SELFPAY ==
[2023-08-16 15:43] LABS: Abs Immature Grans 0.02 10^3/uL (0.0-0.06); Absolute Basophil Count 0.05 10^3/uL (0.0-0.2); Absolute Eosinophil Count 0.13 10^3/uL (0.0-0.7); Absolute Lymphocyte Count 2.35 10^3/uL (1.2-3.4); Absolute Monocyte Count 0.37 10^3/uL (0.1-0.8); Absolute Neutrophil Count 2.98 10^3/uL (1.2-6.7); Basophils % 0.8; Eosinophils % 2.2; HCT 45.1 % (40.0-50.0); HGB 16.1 g/dL (13.5-17.5); Immature Grans % 0.3; Lymphocytes % 39.8; MCH 29.7 pg (27.0-33.0); MCHC 35.7 % (32.0-36.0); MCV 83 fL (80-95); Monocytes % 6.3; Neutrophils % 50.6; Platelet Count 170 10^3/uL (130-400); RBC 5.43 10^6/uL (4.36-5.78); RDW 12.9 % (11.8-14.1); RDW-SD 38.4 fL
[2023-08-16 15:50] LABS: INR 1.1 (0.9-1.1); Prothrombin Time 10.6 sec (9.1-11.1)
[2023-08-16 16:59] LABS: ALT 73 U/L (16-63); AST 31 U/L (15-37); Albumin 4.5 g/dL (3.4-5.0); Alkaline Phosphatase 66 U/L (46-116); Anion Gap 9.8 mmol/L (3-11); BUN 25 mg/dL (7-18); Bilirubin, Total 0.6 mg/dL (0.2-1.0); CO2 26.2 mmol/L (21.0-32.0); CREATININE 0.9 mg/dL (0.70-1.30); Calcium 9.7 mg/dL (8.5-10.1); Chloride 100 mmol/L (98-107); Estimated GFR 114.22 (mL/min/1.73m2); Glucose 109 mg/dL (74-106); Sodium 136 mmol/L (136-145); Total Protein 7.6 g/dL (6.4-8.2)
[2023-08-18 09:38] LABS: IgA 258 mg/dL (85-499); IgG 1050 mg/dL (610-1616); IgM 51 mg/dL (35-242)
[2023-08-19 12:42] LABS: Smooth Muscle Ab Screen Negative (Negative)
[2023-08-19 18:59] LABS: Mitochondrial Ab, M2 <0.1 U
[2023-08-21 12:26] LABS: Tissue Transglutaminase IgA 1.5 U/mL (<4.0)
== END 2023-08-16 05:40 | disposition home or self-care (01) ==
PROVIDERS: PCP Nurse Practitioner Family; Visit Provider Internal Medicine
DX: R74.8 Abnormal levels of other serum enzymes (principal)
CPT/HCPCS: 36415; 80053; 82784; 83516; 85025; 85610; 86255

== ENCOUNTER 2024-05-16 04:34 | Outpatient (CLI) | payer OTHER, SELFPAY ==
[2024-05-16 10:36] LABS: Abs Immature Grans 0.01 10^3/uL (0.0-0.06); Absolute Basophil Count 0.05 10^3/uL (0.0-0.2); Absolute Eosinophil Count 0.16 10^3/uL (0.0-0.7); Absolute Lymphocyte Count 2.12 10^3/uL (1.2-3.4); Absolute Monocyte Count 0.36 10^3/uL (0.1-0.8); Absolute Neutrophil Count 3.32 10^3/uL (1.2-6.7); Basophils % 0.8 %; Eosinophils % 2.7 %; HCT 48.5 % (40.0-50.0); HGB 16.8 g/dL (13.5-17.5); Immature Grans % 0.2 %; Lymphocytes % 35.2 %; MCH 29.8 pg (27.0-33.0); MCHC 34.6 % (32.0-36.0); MCV 86 fL (80-95); MPV 12.5 fL (8.0-11.0); Neutrophils % 55.1 %; Platelet Count 136 10^3/uL (130-400); RBC 5.63 10^6/uL (4.36-5.78); RDW 12.3 % (11.8-14.1); RDW-SD 38.2 fL; WBC 6.02 10^3/uL (4.4-10.8)
[2024-05-16 10:59] LABS: INR 1.1 (0.9-1.1); Prothrombin Time 10.8 sec (9.1-11.1)
[2024-05-16 11:47] LABS: ALT 128 U/L (16-63); AST 57 U/L (15-37); Albumin 4.2 g/dL (3.4-5.0); Alkaline Phosphatase 73 U/L (46-116); Anion Gap 8.4 mmol/L (3-11); BUN 15 mg/dL (7-18); Bilirubin, Total 0.54 mg/dL (0.2-1.0); CO2 27.6 mmol/L (21.0-32.0); CREATININE 0.9 mg/dL (0.70-1.30); Calcium 9.2 mg/dL (8.5-10.1); Chloride 102 mmol/L (98-107); Estimated GFR 113.51 (mL/min/1.73m2); Glucose 176 mg/dL (74-106); Sodium 138 mmol/L (136-145); Total Protein 7.4 g/dL (6.4-8.2)
== END 2024-05-16 04:35 | disposition home or self-care (01) ==
LOC: LBO 04:35
PROVIDERS: PCP Nurse Practitioner Family; Visit Provider Internal Medicine
DX: K75.81 Nonalcoholic steatohepatitis (NASH) (principal)
CPT/HCPCS: 36415; 80053; 85025; 85610

== ENCOUNTER 2024-06-25 15:31 | Outpatient (CLI) | payer OTHER, SELFPAY ==
--- NOTE | 2024-06-25 15:01 | DI.RAD_ITS ---
Exam(s) XR SHOULDER RT COMPLETE 2+V EXAM: XR SHOULDER RT COMPLETE 2+V CLINICAL HISTORY: evaluate right shoulder. TECHNIQUE: 2D digital imaging was performed. Two views. COMPARISON: CR XR SHOULDER RT COMPLETE 2+V from 11/09/2022 FINDINGS: BONES: No acute fracture is present. No bony destructive lesion is seen. Os acromiale. JOINTS: No dislocation present. Glenohumeral joint space is maintained. No significant degenerative changes AC joint. SOFT TISSUE: Normal. IMPRESSION: Os acromiale. DATA REPOSITORY: RADIATION DOSE DELIVERED:
== END 2024-06-25 15:32 | disposition home or self-care (01) ==
LOC: DIORS 15:31
PROVIDERS: PCP Nurse Practitioner Family; Visit Provider Student in an Organized Health Care Education/Training Program
DX: M25.511 Pain in right shoulder (principal)
CPT/HCPCS: 73030

== ENCOUNTER 2024-07-01 04:45 | Outpatient (CLI) | payer OTHER, SELFPAY ==
[2024-07-01 13:23] LABS: Abs Immature Grans 0.01 10^3/uL (0.0-0.06); Absolute Basophil Count 0.04 10^3/uL (0.0-0.2); Absolute Eosinophil Count 0.07 10^3/uL (0.0-0.7); Absolute Lymphocyte Count 1.98 10^3/uL (1.2-3.4); Absolute Monocyte Count 0.41 10^3/uL (0.1-0.8); Absolute Neutrophil Count 3.96 10^3/uL (1.2-6.7); Basophils % 0.6 %; Eosinophils % 1.1 %; HCT 45.7 % (40.0-50.0); HGB 16.3 g/dL (13.5-17.5); Immature Grans % 0.2 %; Lymphocytes % 30.6 %; MCHC 35.7 % (32.0-36.0); MCV 84 fL (80-95); MPV 12.8 fL (8.0-11.0); Monocytes % 6.3 %; Neutrophils % 61.2 %; Platelet Count 158 10^3/uL (130-400); RBC 5.44 10^6/uL (4.36-5.78); RDW 12.1 % (11.8-14.1); RDW-SD 35.9 fL; WBC 6.47 10^3/uL (4.4-10.8)
[2024-07-01 13:55] LABS: C-Reactive Protein < 0.50 mg/dL (<or=0.5)
[2024-07-02 00:36] LABS: ESR 3 mm/hr (0-15)
== END 2024-07-01 04:46 | disposition home or self-care (01) ==
LOC: LBO 04:45
PROVIDERS: PCP Nurse Practitioner Family; Visit Provider Student in an Organized Health Care Education/Training Program
DX: M75.51 Bursitis of right shoulder (principal)
CPT/HCPCS: 36415; 85652; 85025; 86140

== ENCOUNTER 2024-07-10 01:58 | Outpatient (CLI) | payer OTHER, SELFPAY ==
--- NOTE | 2024-07-10 13:55 | DI.MRI_ITS ---
Exam(s) MR UPPER JOINT RT WO EXAM: MR UPPER JOINT RT WO CLINICAL HISTORY: R SHOULDER PAIN,bursitis, m75.51. TECHNIQUE: Multiplanar multisequence MRI was performed. COMPARISON: MR MR UPPER JOINT RT WO from 10/06/2022 CR XR SHOULDER RT COMPLETE 2+V from 11/09/2022 CR XR SHOULDER RT COMPLETE 2+V from 06/25/2024 FINDINGS: BONES: There is no fracture or contusion pattern. Note is made of an os acromiale. Postsurgical nic nges seen in the humeral head. JOINTS: There are mild degenerative changes seen at the acromioclavicular joint. The glenohumeral faraz int is normal. TENDONS: There is artifact seen around the rotator cuff tendons which is likely related to prior surg tiffany. Supraspinatus: There is mild tendinosis of the supraspinatus tendon without evidence of a tear. Infraspinatus: Unremarkable. Subscapularis: Unremarkable. Teres Minor: Unremarkable. Biceps and [place]: Unremarkable. MUSCLES: Unremarkable. GLENOID LABRUM: Unremarkable on this noncontrast examination. SOFT TISSUES: Unremarkable. LIGAMENTS: Unremarkable. OTHER: There is a tiny amount of fluid seen in the subacromial bursa which may reflect bursitis. IMPRESSION: 1. Postsurgical changes in the right shoulder as described above. 2. No evidence of a rotator cuff tear. 3. Mild tendinosis of the supraspinatus tendon. 4. Tiny amount of fluid seen in the subacromial bursa which may reflect bursitis. DATA REPOSITORY:
== END 2024-07-10 02:18 ==
LOC: DI 01:59
PROVIDERS: PCP Nurse Practitioner Family; Visit Provider Student in an Organized Health Care Education/Training Program
DX: M75.51 Bursitis of right shoulder (principal)
CPT/HCPCS: 73221

== ENCOUNTER 2024-09-13 01:34 | Outpatient (CLI) | payer OTHER, SELFPAY ==
[2024-09-13 08:21] LABS: Absolute Basophil Count 0.05 10^3/uL (0.0-0.2); Absolute Eosinophil Count 0.19 10^3/uL (0.0-0.7); Absolute Lymphocyte Count 1.82 10^3/uL (1.2-3.4); Absolute Monocyte Count 0.32 10^3/uL (0.1-0.8); Absolute Neutrophil Count 2.73 10^3/uL (1.2-6.7); Eosinophils % 3.7 %; HCT 47.4 % (40.0-50.0); HGB 16.7 g/dL (13.5-17.5); Lymphocytes % 35.6 %; MCH 29.8 pg (27.0-33.0); MCHC 35.2 % (32.0-36.0); MCV 85 fL (80-95); MPV 12.3 fL (8.0-11.0); Monocytes % 6.3 %; Neutrophils % 53.4 %; Platelet Count 137 10^3/uL (130-400); RBC 5.61 10^6/uL (4.36-5.78); RDW 12.2 % (11.8-14.1); RDW-SD 37.3 fL; WBC 5.11 10^3/uL (4.4-10.8)
[2024-09-13 08:31] LABS: INR 1.1 (0.9-1.1); Prothrombin Time 10.8 sec (9.1-11.1)
[2024-09-13 08:53] LABS: ALT 80 U/L (16-63); AST 25 U/L (15-37); Albumin 3.9 g/dL (3.4-5.0); Alkaline Phosphatase 62 U/L (46-116); Anion Gap 5.6 mmol/L (3-11); BUN 11 mg/dL (7-18); Bilirubin, Total 0.45 mg/dL (0.2-1.0); CO2 27.4 mmol/L (21.0-32.0); Calcium 8.7 mg/dL (8.5-10.1); Chloride 107 mmol/L (98-107); Estimated GFR 100.03 (mL/min/1.73m2); Glucose 145 mg/dL (74-106); Potassium 4.2 mmol/L (3.5-5.1); Sodium 140 mmol/L (136-145); Total Protein 6.9 g/dL (6.4-8.2)
== END 2024-09-13 01:35 | disposition home or self-care (01) ==
PROVIDERS: PCP Nurse Practitioner Family; Visit Provider Internal Medicine
DX: K75.81 Nonalcoholic steatohepatitis (NASH) (principal)
CPT/HCPCS: 36415; 80053; 85025; 85610

== ENCOUNTER 2025-02-19 02:01 | Outpatient (CLI) | payer OTHER, SELFPAY ==
[2025-02-19 08:34] LABS: Abs Immature Grans 0.01 10^3/uL (0.0-0.06); Absolute Basophil Count 0.04 10^3/uL (0.0-0.2); Absolute Lymphocyte Count 1.85 10^3/uL (1.2-3.4); Absolute Monocyte Count 0.32 10^3/uL (0.1-0.8); Absolute Neutrophil Count 2.66 10^3/uL (1.2-6.7); Basophils % 0.8 %; HCT 47.1 % (40.0-50.0); Immature Grans % 0.2 %; Lymphocytes % 37.1 %; MCH 30.1 pg (27.0-33.0); MCHC 36.1 % (32.0-36.0); MCV 84 fL (80-95); MPV 12.4 fL (8.0-11.0); Monocytes % 6.4 %; Neutrophils % 53.5 %; Platelet Count 140 10^3/uL (130-400); RBC 5.64 10^6/uL (4.36-5.78); RDW 12.4 % (11.8-14.1); RDW-SD 37.3 fL; WBC 4.98 10^3/uL (4.4-10.8)
[2025-02-19 08:42] LABS: Prothrombin Time 10.5 sec (9.1-11.1)
[2025-02-19 09:16] LABS: ALT 107 U/L (16-63); AST 51 U/L (15-37); Albumin 4.1 g/dL (3.4-5.0); Alkaline Phosphatase 62 U/L (46-116); Anion Gap 7.6 mmol/L (3-11); BUN 16 mg/dL (7-18); Bilirubin, Total 0.7 mg/dL (0.2-1.0); CO2 25.4 mmol/L (21.0-32.0); CREATININE 0.9 mg/dL (0.70-1.30); Calcium 9.1 mg/dL (8.5-10.1); Chloride 103 mmol/L (98-107); Estimated GFR 112.81 (mL/min/1.73m2); Ferritin 451 ng/mL (26-388); Glucose 164 mg/dL (74-106); Sodium 136 mmol/L (136-145); Total Protein 7.3 g/dL (6.4-8.2)
[2025-02-19 09:32] LABS: Iron 103 ug/dL (65-175); Total Iron Binding Capacity 253 ug/dL (250-450); Transferrin Sat 41 % (20-55)
== END 2025-02-19 02:02 | disposition home or self-care (01) ==
LOC: LBO 02:01
PROVIDERS: PCP Nurse Practitioner Family; Visit Provider Nurse Practitioner Family
DX: R74.8 Abnormal levels of other serum enzymes (principal); K75.81 Nonalcoholic steatohepatitis (NASH); K76.0 Fatty (change of) liver, not elsewhere classified
CPT/HCPCS: 36415; 80053; 82728; 83540; 83550; 85025; 85610